=== PATIENT | male | born 1955 | race Caucasian/White ===

== ENCOUNTER 2019-10-03 12:17 | Emergency (ER) | payer MEDICARE ==
[2019-10-03] MEDS ORDERED: Fentanyl 100 MCG/2 ML VIAL ONE (12:39)
--- NOTE | 2019-10-03 14:23 | RAD ---
RIGHT HIP 2 VIEWS: Date: 10/03/2019 HISTORY: Right hip pain following injury from a fall. FINDINGS/IMPRESSION: Status post right total hip replacement. No evidence for acute fracture or dislocation. POS: RRE
--- NOTE | 2019-10-03 14:26 | RAD ---
Radiograph right femur 2 views: 10/03/2019 HISTORY: 64-year-old male with acute traumatic right thigh pain after fall FINDINGS: Total hip replacement hardware. No signs of loosening or dislocation. No acute fracture of femur. IMPRESSION: 1. No acute fracture. 2. Status post total right hip replacement arthroplasty.
--- NOTE | 2019-10-03 14:27 | RAD ---
AP PELVIS 1 VIEW: Date: 10/03/2019 HISTORY: Right hip pain following injury from a fall. FINDINGS: Total right hip replacement changes without dislocation or periprosthetic fracture. Very severe arthr osis changes of the left hip joint with marked joint space loss and hypertrophic osteophytosis, scler osis, and eburnation, and some overall flattening and deformity of the left humeral head and neck reg ion, but this does not appear to represent any acute fracture. IMPRESSION: Severe arthrosis left hip joint. No overt acute fracture. No acute pelvic fracture. Status post right total hip replacement. POS: RRE
[2019-10-03] MEDS ORDERED: Ketorolac Tromethamine 30 MG/ML VIAL ONE (14:54)
[2019-10-03] MEDS ORDERED: Ondansetron PF 4 MG/2 ML Vial ONE (14:54)
[2019-10-03] MEDS ORDERED: Morphine 4 MG/ML VIAL ONE (14:54)
[2019-10-03] MEDS ORDERED: Diazepam 5 MG TAB ONE (14:54)
== END 2019-10-03 18:32 | disposition home or self-care (01) ==
LOC: ERS 12:17
DX: S30.0XXA Contusion of lower back and pelvis, initial encounter (principal); S70.01XA Contusion of right hip, initial encounter; M62.830 Muscle spasm of back; I10 Essential (primary) hypertension; E78.00 Pure hypercholesterolemia, unspecified; M10.9 Gout, unspecified; Z86.73 Personal history of transient ischemic attack (TIA), and cerebral infarction without residual deficits; Z79.899 Other long term (current) drug therapy; W18.11XA Fall from or off toilet without subsequent striking against object, initial encounter
CPT/HCPCS: 72170; 96374; 96375; J1885; J2270; J2405; J3010

== ENCOUNTER 2020-02-29 07:27 | Outpatient (CLI) | payer MEDICARE, OTHER ==
[2020-02-29 12:25] LABS: #Eosinphils 0.3 10x3/uL (0.0-0.5); #Monocytes 0.8 10x3/uL (0.0-1.1); #Neutrophils 5.2 10x3/uL (1.5-8.4); %Basophils 0.5 % (0.0-2.0); %Eosinophils 3.4 % (0.0-6.0); %Lymphocytes 21.4 % (18.0-47.0); %Monocytes 10.2 % (0.0-10.0); Hemoglobin 17.8 g/dL (14.0-18.0); Mean Corpuscular HGB CONC 34.6 G/DL (32.0-36.0); Mean Corpuscular Hemoglobin 31.4 PG (27.0-33.0); Mean Corpuscular Volume 90.7 fl (80.0-100.0); Mean Platelet Volume 11.7 fl (7.4-10.4); Platelet Count 182 10x3/uL (130-400); RBC Distribution Width 12.5 % (11.5-14.5); Red Blood Cell (RBC) Count 5.67 10x6/uL (4.40-5.80); White Blood Cell (WBC) Count 8.1 10x3/uL (4.5-11.0)
[2020-02-29 12:32] LABS: Bilirubin Neg (Negative); Blood, Urine Negative (Negative); Clarity Clear (Clear); Glucose, Urine (Dipstick) Normal (Negative); Ketone, Urine Negative (Negative); Leukocyte Negative (Negative); Nitrite Negative (Negative); Protein, Urine (Dipstick) Negative (Neg-Trace)
[2020-02-29 12:37] LABS: Prothrombin Time 10.9 sec (9.5-12.1)
[2020-02-29 12:48] LABS: Bacteria/HPF None Seen HPF (None Seen); RBC/HPF None Seen HPF (0-3); Squamous Epithelial None Seen HPF (0-3); WBC/HPF None Seen HPF (0-3)
[2020-02-29 12:56] LABS: Anion Gap 22 mmol/L (10-20); BUN (Urea Nitrogen) 11 mg/dL (8.4-25.7); Calc. Creatinine Clearance 0 mL/min (70-130); Calcium 9.8 mg/dL (7.8-10.44); Carbon Dioxide 20 mmol/L (23-31); Chloride 101 mmol/L (98-107); Estimated GFR-MDRD 83; Glucose 83 mg/dL (80-115); Potassium 4.4 mmol/L (3.5-5.1); Sodium 139 mmol/L (136-145)
[2020-03-01 11:57] LABS: SARS-CoV-2 MS2 Positive; SARS-CoV-2 N Gene Negative; SARS-CoV-2 S Gene Negative; SARS-CoV-2 by NAA Not Detected (NotDetected); SARS-CoV-2 orf1ab Negative
== END 2020-02-29 07:28 | disposition home or self-care (01) ==
LOC: LABBT 07:27
PROVIDERS: ATTEND Orthopaedic Surgery
DX: Z01.818 Encounter for other preprocedural examination (principal); Z20.828 Contact with and (suspected) exposure to other viral communicable diseases; M16.12 Unilateral primary osteoarthritis, left hip
CPT/HCPCS: 80048; 81001; 85025; 85610; 87081; 93005; U0003; 87635; 93010

== ENCOUNTER 2020-02-29 11:00 | Inpatient (IN) | payer MEDICARE ==
[2020-03-04 12:42] VITALS: BMI 29.5
[2020-03-05] MEDS ORDERED: Promethazine HCl 25 MG/ML VIAL IM PRN ×3 (06:57→10:18)
[2020-03-05] MEDS ORDERED: Acetaminophen 325 MG TAB PO PRN (06:57)
[2020-03-05] MEDS ORDERED: Ondansetron PF 4 MG/2 ML Vial IVP PRN ×2 (06:57→08:45)
[2020-03-05] MEDS ORDERED: HYDROcodone/Acetaminophen 10/325 mg Tablet PO PRN ×2 (06:57)
[2020-03-05] MEDS ORDERED: Zolpidem Tartrate 5 MG TAB PO PRN ×2 (06:57→08:45)
[2020-03-05] MEDS ORDERED: diphenhydrAMINE 25 MG CAP PO PRN (06:57)
[2020-03-05] MEDS ORDERED: Tranexamic Acid 1,000 MG/10 ML VIAL ONE (07:40)
[2020-03-05] MEDS ORDERED: Sodium Chloride 0.9% 100 ML ONE (07:41)
[2020-03-05] MEDS ORDERED: Vancomycin 1.5 GRAM/300 ML BAG ONE (07:41)
[2020-03-05] MEDS ORDERED: Fentanyl 100 MCG/2 ML VIAL ONE ×3 (08:16→11:29)
[2020-03-05] MEDS ORDERED: Midazolam HCl 2 mg/2 ml Vial ONE (08:16)
[2020-03-05] MEDS ORDERED: fentaNYL Citrate/PF 500 MCG, Bupivacaine 10 ML in Sodium Chloride 0.9% 80 ML EPIDURAL SCH (08:45)
[2020-03-05] MEDS ORDERED: Naloxone HCl 0.4 mg/ml Vial IV PRN (08:45)
[2020-03-05] MEDS ORDERED: Promethazine HCl 25 MG SUPP PR PRN (08:45)
[2020-03-05] MEDS ORDERED: Naloxone HCl 0.4 mg/ml Vial IVP PRN (08:45)
[2020-03-05] MEDS ORDERED: Bupivacaine 0.25% 10 ML VIAL EPIDURAL PRN (08:45)
[2020-03-05] MEDS ORDERED: Hydrocerin (Eucerin) Cream 120 gm Jar TOP PRN (08:45)
[2020-03-05] MEDS ORDERED: diphenhydrAMINE 50 MG/ML VIAL IVP PRN (08:45)
[2020-03-05] MEDS ORDERED: HYDROcodone/Acetaminophen 5/325 mg Tablet PO PRN (08:45)
[2020-03-05] MEDS ORDERED: diphenhydrAMINE 50 MG/ML VIAL IM PRN (08:45)
[2020-03-05] MEDS ORDERED: traMADol HCl 50 MG TAB PO PRN (08:45)
[2020-03-05] MEDS ORDERED: Aspirin 81 mg Enteric Coated Tablet PO SCH (09:00)
[2020-03-05] MEDS ORDERED: Bupivacaine/Epinephrine 0.25% 30 ML VIAL ONE (09:06)
[2020-03-05] MEDS ORDERED: Ropivacaine 0.2% HCl/PF 0 ML ONE (09:17)
[2020-03-05] MEDS ORDERED: PACU-Morphine 4MG/ML VIAL SLOW IVP PRN (10:18)
[2020-03-05] MEDS ORDERED: Promethazine HCl 25 MG/ML VIAL SLOW IVP PRN (10:18)
[2020-03-05] MEDS ORDERED: Meperidine HCl/PF 25 MG/ML VIAL SLOW IVP PRN (10:18)
--- NOTE | 2020-03-05 11:26 | OP ---
DATE OF PROCEDURE: 03/05/2020 TITLE OF PROCEDURE: Left total hip arthroplasty using a [place] Accolade II size 4 stem, -5 ceramic head, and a 56-mm Trident II cup with a 36-mm X3 liner. PURIFICATION OPERATOR HELPER: Gigi Draper PA-C BLOOD LOSS: 200. SPECIMENS: None. DRAINS: None. COMPLICATION: None. The news assistant/co-surgeon was present through the entire procedure and was responsible for providing exposure, tissue retraction and any necessary limb or tissue manipulation required to obtain necessary reduction or hardware placement. The news assistant/co-surgeon also provided bleeding control, tissue closure, and suturing in conjunction with the primary surgeon. PROCEDURE IN DETAIL: After informed consent was obtained in the preoperative holding area, the patient was taken to the operative suite where general anesthesia was induced. The patient was then positioned in the lateral decubitus position. The hip was then prepped and draped in usual sterile fashion. The patient received preoperative antibiotics. Prior to incision, time-out was called and all members of the surgical team agreed upon site, surgeon, and patient. After this, a longitudinal incision was made directly over the trochanter, noted by palpation extending 2 fingerbreadths above and below the trochanter. The deeper subcutaneous layer was undermined with Bovie electrocautery. The iliotibial band was encountered and incised sharply and the plane below this was developed bluntly. A Charnley retractor was placed to hold this opened. The lateral aspect of the trochanter and the abductor muscles were encountered and then reflected anteriorly off the trochanter using Bovie electrocautery. Once this was completed, the anterior capsule was then encountered and identified and copious capsulotomy was carried out, exposing the femoral neck and head. Dislocation maneuver was then performed and an in situ provisional neck cut was then made using the oscillating saw. Attention was then turned to acetabular preparation and sequential reaming was carried out up to the appropriate diameter. A trial was then malleted into place with good firm resistance and no pullout. The permanent acetabular shell was then malleted squarely into place, as was the appropriate liner. Once completed, the wound was copiously irrigated and attention was then turned to femoral preparation. Flexion and external rotation were performed of the exposed thigh and femoral elevators were then placed at the proximal aspect of the wound. Canal finder was used to establish the length of the canal and sequential reaming was carried out, followed by broaching. Once the appropriate stability was established with the trial broaches with flexion, extension and rotational stability, we did trial with neutral and 2 mm offset incremental necks. Once the appropriate size was decided upon, with good stability noted with flexion, extension, internal and external rotation and shuck being negative, we removed the femoral trial broach and malletted into place the permanent prosthesis with good firm fit, which was also stable to rotation. Again, the hip felt very stable to flexion, extension, internal and external rotation. Leg lengths appeared near anatomic clinically and we were quite happy with prosthesis placement. Copious irrigation was then carried out through the entirety of the wound. Primary closure of the abductors was accomplished with interrupted #2 Vicryl [id number] stitches and the IT band was then closed with interrupted #2 Vicryl, oversewn with a #2 running barbed Quill stitch. Subcutaneous fascia was closed with running barbed Quill stitch and a subcuticular Monocryl barbed Quill stitch was used for skin closure and augmented with skin cement. A sterile dressing was applied. The procedure was terminated without any complication. All counts were correct. The patient was awakened in the operative suite and taken to the recovery room in stable condition. Job ID: [id number]
--- NOTE | 2020-03-05 11:58 | RAD ---
XR Hip Lt 2-3 View INDICATION: Postop left hip COMPARISON: None FINDINGS: Bones: No acute osseous abnormality. Bone mineralization appears within normal limits. Hip joint: There is a left total hip prosthesis that projects in expected position. There is scattere d intra-articular and periarticular soft tissue gas. SI joints and symphysis pubis: Radiographically normal. Intrapelvic contents: Visualized bowel gas pattern is within normal limits. Surrounding soft tissues: As expected for postoperative left hip. IMPRESSION: 1. Postoperative left hip.
[2020-03-05] MEDS: Allopurinol 100 MG TAB PO SCH (12:53)
[2020-03-05] MEDS: Baclofen 10 MG TAB PO SCH ×2 (12:53→20:33)
[2020-03-05] MEDS: Aspirin 81 mg Enteric Coated Tablet PO SCH ×2 (12:53→20:33)
[2020-03-05] MEDS: Sodium Chloride 0.9% 1,000 ML IV SCH ×2 (12:53→21:18)
[2020-03-05] MEDS: Hydrochlorothiazide 25 MG TAB PO SCH (12:54)
[2020-03-05] MEDS: Lisinopril 20 MG TAB PO SCH (12:54)
[2020-03-05] MEDS: Ubidecarenone 50 MG CAP PO SCH ×2 (12:54→20:32)
[2020-03-05] MEDS: Metoprolol Tartrate 50 MG TAB PO SCH ×2 (12:54→20:33)
[2020-03-05] MEDS ORDERED: Ondansetron PF 4 MG/2 ML Vial ONE (13:11)
[2020-03-05] MEDS ORDERED: Rocuronium Bromide 10 MG/ML (10ML VIAL) ONE (13:11)
[2020-03-05] MEDS ORDERED: Lidocaine 1.5% w/Epi 1:200K 30 ML VIAL (Epid Use) ONE (13:11)
[2020-03-05] MEDS ORDERED: Lidocaine 1% PF 5 ML VIAL ONE (13:11)
[2020-03-05] MEDS ORDERED: PHENYLEPHRINE-NS 100 MCG/ML 10 ML SYRINGE ONE (13:11)
[2020-03-05] MEDS ORDERED: Dexamethasone 20 MG/5 ML VIAL ONE (13:11)
[2020-03-05] MEDS ORDERED: Glycopyrrolate 0.2 MG/ML 5 ML SYRINGE ONE (13:11)
[2020-03-05] MEDS ORDERED: EPHEDRINE 25 MG/5 ML SYRINGE ONE (13:11)
[2020-03-05] MEDS ORDERED: PROPOFOL 200 MG/20 ML VIAL ONE (13:11)
[2020-03-05] MEDS: Ketorolac Tromethamine 30 MG/ML VIAL IVP SCH ×2 (13:22→18:00)
[2020-03-05] MEDS ORDERED: Ketorolac Tromethamine 30 MG/ML VIAL IM SCH (14:00)
[2020-03-05] MEDS: CEFAZOLIN 2 GM in Premix Bag 1 BAG IVPB SCH (19:00)
[2020-03-05] MEDS: Atorvastatin Calcium 40 MG TAB PO SCH (20:33)
[2020-03-05] MEDS: FLUoxetine HCl 20 MG CAP PO SCH (20:33)
[2020-03-06] MEDS: diphenhydrAMINE 25 MG CAP PO PRN ×3 (00:11→13:02)
[2020-03-06] MEDS: Ketorolac Tromethamine 30 MG/ML VIAL IVP SCH ×5 (00:11→23:48)
[2020-03-06] MEDS: CEFAZOLIN 2 GM in Premix Bag 1 BAG IVPB SCH (00:11)
[2020-03-06] MEDS ORDERED: Insulin Regular 300 UNITS/3 ML VIAL ONE (03:28)
[2020-03-06] MEDS: Sodium Chloride 0.9% 1,000 ML IV SCH ×3 (05:27→23:48)
[2020-03-06 05:51] LABS: Mean Corpuscular HGB CONC 33.8 g/dL (32.0-36.0); Mean Corpuscular Hemoglobin 32.8 pg (27.0-31.0); Platelet Count 145 thou/uL (130-400); RBC Distribution Width 11.7 % (11.5-14.5); Red Blood Cell (RBC) Count 4.58 mill/uL (4.70-6.10); White Blood Cell (WBC) Count 11.3 thou/uL (4.8-10.8)
[2020-03-06] MEDS: Aspirin 81 mg Enteric Coated Tablet PO SCH ×2 (08:42→21:13)
[2020-03-06] MEDS: Ferrous Gluconate 324 MG TAB PO SCH ×2 (08:43→18:05)
[2020-03-06] MEDS: Senokot S 8.6-50 MG TAB PO SCH ×2 (08:43→21:13)
[2020-03-06] MEDS: Multivitamin W/ Minerals 1 TAB PO SCH (08:44)
[2020-03-06] MEDS: Ubidecarenone 50 MG CAP PO SCH ×2 (08:44→21:12)
[2020-03-06] MEDS: Lisinopril 20 MG TAB PO SCH (08:44)
[2020-03-06] MEDS: Hydrochlorothiazide 25 MG TAB PO SCH (08:45)
[2020-03-06] MEDS: Metoprolol Tartrate 50 MG TAB PO SCH ×2 (08:46→21:13)
[2020-03-06] MEDS: Baclofen 10 MG TAB PO SCH ×2 (08:46→21:11)
[2020-03-06] MEDS: Allopurinol 100 MG TAB PO SCH (08:46)
[2020-03-06] MEDS ORDERED: FLU VACC QS2020-21(6MOS UP)/PF 60 MCG/0.5 ML SYRINGE IM ONE (09:00)
[2020-03-06] MEDS: Bupivacaine 10 ML in Sodium Chloride 0.9% 90 ML EPIDURAL SCH (13:10)
[2020-03-06] MEDS: HYDROcodone/Acetaminophen 5/325 mg Tablet PO PRN (18:05)
[2020-03-06] MEDS: Atorvastatin Calcium 40 MG TAB PO SCH (21:12)
[2020-03-06] MEDS: FLUoxetine HCl 20 MG CAP PO SCH (21:12)
[2020-03-06] MEDS: traMADol HCl 50 MG TAB PO PRN (21:12)
--- NOTE | 2020-03-06 21:16 | RAD ---
TWO VIEWS OF THE LEFT HIP: 03/06/20 COMPARISON: 03/05/20 HISTORY: Fall, left total hip arthroplasty. FINDINGS: Lateral soft tissue swelling is present, similar when compared to the prior exam. There is a stable l eft hip arthroplasty. No acute fracture or dislocation. IMPRESSION: No significant interval change. POS: DEEPTI
[2020-03-07 05:14] LABS: Hemoglobin 14.4 g/dL (14.0-18.0); Mean Corpuscular HGB CONC 33.2 g/dL (32.0-36.0); Mean Corpuscular Volume 96.5 fL (78.0-98.0); Mean Platelet Volume 9.5 fL (7.4-10.4); Platelet Count 130 thou/uL (130-400); RBC Distribution Width 11.9 % (11.5-14.5); Red Blood Cell (RBC) Count 4.49 mill/uL (4.70-6.10)
[2020-03-07] MEDS: Ketorolac Tromethamine 30 MG/ML VIAL IVP SCH (05:16)
[2020-03-07] MEDS: Bupivacaine 10 ML in Sodium Chloride 0.9% 90 ML EPIDURAL SCH ×2 (05:17→20:19)
[2020-03-07] MEDS: HYDROcodone/Acetaminophen 5/325 mg Tablet PO PRN (07:52)
[2020-03-07] MEDS: Ferrous Gluconate 324 MG TAB PO SCH ×2 (07:54→18:50)
[2020-03-07] MEDS: Metoprolol Tartrate 50 MG TAB PO SCH ×2 (07:54→20:24)
[2020-03-07] MEDS: Aspirin 81 mg Enteric Coated Tablet PO SCH ×2 (07:55→20:23)
[2020-03-07] MEDS: Ubidecarenone 50 MG CAP PO SCH ×2 (07:55→20:23)
[2020-03-07] MEDS: Allopurinol 100 MG TAB PO SCH (07:55)
[2020-03-07] MEDS: Hydrochlorothiazide 25 MG TAB PO SCH (07:55)
[2020-03-07] MEDS: Baclofen 10 MG TAB PO SCH ×2 (07:55→20:23)
[2020-03-07] MEDS: Multivitamin W/ Minerals 1 TAB PO SCH (07:55)
[2020-03-07] MEDS: Lisinopril 20 MG TAB PO SCH (07:56)
[2020-03-07] MEDS: Senokot S 8.6-50 MG TAB PO SCH ×2 (07:56→20:23)
[2020-03-07] MEDS: traMADol HCl 50 MG TAB PO PRN (11:24)
[2020-03-07] MEDS: Sodium Chloride 0.9% 1,000 ML IV SCH ×2 (11:25→20:29)
[2020-03-07] MEDS ORDERED: HYDROcodone/Acetaminophen 10/325 mg Tablet PO PRN (12:31)
[2020-03-07] MEDS ORDERED: Fentanyl 100 MCG/2 ML VIAL SLOW IVP PRN (12:33)
[2020-03-07] MEDS: HYDROcodone/Acetaminophen 10/325 mg Tablet PO PRN ×2 (16:19→20:26)
[2020-03-07] MEDS: Atorvastatin Calcium 40 MG TAB PO SCH (20:23)
[2020-03-07] MEDS: FLUoxetine HCl 20 MG CAP PO SCH (20:23)
[2020-03-08] MEDS: Sodium Chloride 0.9% 1,000 ML IV SCH ×2 (04:12→13:07)
[2020-03-08 05:58] LABS: Hemoglobin 15.3 g/dL (14.0-18.0); Mean Corpuscular HGB CONC 33.8 g/dL (32.0-36.0); Mean Corpuscular Hemoglobin 32.8 pg (27.0-31.0); Mean Platelet Volume 9.4 fL (7.4-10.4); Platelet Count 150 thou/uL (130-400); RBC Distribution Width 11.8 % (11.5-14.5); Red Blood Cell (RBC) Count 4.65 mill/uL (4.70-6.10); White Blood Cell (WBC) Count 9.7 thou/uL (4.8-10.8)
[2020-03-08] MEDS: HYDROcodone/Acetaminophen 10/325 mg Tablet PO PRN (08:49)
[2020-03-08] MEDS ORDERED: tiZANidine HCl 4 MG TAB PO SCH (09:00)
[2020-03-08] MEDS: Hydrochlorothiazide 25 MG TAB PO SCH (09:18)
[2020-03-08] MEDS: Senokot S 8.6-50 MG TAB PO SCH ×2 (09:18→21:26)
[2020-03-08] MEDS: Ubidecarenone 50 MG CAP PO SCH ×2 (09:18→21:26)
[2020-03-08] MEDS: Allopurinol 100 MG TAB PO SCH (09:19)
[2020-03-08] MEDS: Aspirin 81 mg Enteric Coated Tablet PO SCH ×2 (09:19→21:26)
[2020-03-08] MEDS: Ferrous Gluconate 324 MG TAB PO SCH ×2 (09:19→18:18)
[2020-03-08] MEDS: Metoprolol Tartrate 50 MG TAB PO SCH ×2 (09:19→21:45)
[2020-03-08] MEDS: Bupivacaine 10 ML in Sodium Chloride 0.9% 90 ML EPIDURAL SCH (09:19)
[2020-03-08] MEDS: Lisinopril 20 MG TAB PO SCH (09:19)
[2020-03-08] MEDS: Multivitamin W/ Minerals 1 TAB PO SCH (09:19)
[2020-03-08] MEDS: tiZANidine HCl 4 MG TAB PO SCH ×3 (17:20→23:27)
[2020-03-08] MEDS: Atorvastatin Calcium 40 MG TAB PO SCH (21:25)
[2020-03-08] MEDS: FLUoxetine HCl 20 MG CAP PO SCH (21:26)
[2020-03-09] MEDS: Sodium Chloride 0.9% 1,000 ML IV SCH ×2 (01:28→09:43)
[2020-03-09] MEDS: tiZANidine HCl 4 MG TAB PO SCH ×2 (03:42→07:59)
[2020-03-09 05:05] LABS: Hemoglobin 14.6 g/dL (14.0-18.0); Mean Corpuscular HGB CONC 34.5 g/dL (32.0-36.0); Mean Corpuscular Hemoglobin 33.5 pg (27.0-31.0); Mean Corpuscular Volume 97.1 fL (78.0-98.0); Platelet Count 168 thou/uL (130-400); RBC Distribution Width 11.6 % (11.5-14.5); Red Blood Cell (RBC) Count 4.34 mill/uL (4.70-6.10); White Blood Cell (WBC) Count 7.4 thou/uL (4.8-10.8)
[2020-03-09 07:37] VITALS: TEMP 98.2
[2020-03-09] MEDS: Allopurinol 100 MG TAB PO SCH (09:34)
[2020-03-09] MEDS: Ubidecarenone 50 MG CAP PO SCH (09:34)
[2020-03-09] MEDS: Aspirin 81 mg Enteric Coated Tablet PO SCH (09:34)
[2020-03-09] MEDS: Ferrous Gluconate 324 MG TAB PO SCH (09:34)
[2020-03-09] MEDS: Senokot S 8.6-50 MG TAB PO SCH (09:35)
[2020-03-09] MEDS: Multivitamin W/ Minerals 1 TAB PO SCH (09:35)
[2020-03-09] MEDS: Metoprolol Tartrate 50 MG TAB PO SCH (09:42)
[2020-03-09] MEDS: Lisinopril 20 MG TAB PO SCH (09:42)
[2020-03-09 09:43] VITALS: BP 126/76
[2020-03-09] MEDS: Hydrochlorothiazide 25 MG TAB PO SCH (09:43)
[2020-03-09] MEDS: HYDROcodone/Acetaminophen 10/325 mg Tablet PO PRN (12:29)
== END 2020-03-09 12:20 | DRG 470 ==
LOC: SJJU 03-05 06:44
PROVIDERS: ADMIT Orthopaedic Surgery; ATTEND Orthopaedic Surgery
PROC: 0SRB049 Replacement of Left Hip Joint with Ceramic on Polyethylene Synthetic Substitute, Cemented, Open Approach (ICD-10-PCS; principal; 2020-03-05)
DX: M16.12 Unilateral primary osteoarthritis, left hip (principal); I69.351 Hemiplegia and hemiparesis following cerebral infarction affecting right dominant side; F32.9 Major depressive disorder, single episode, unspecified; K21.9 Gastro-esophageal reflux disease without esophagitis; I10 Essential (primary) hypertension; M10.9 Gout, unspecified; Z20.828 Contact with and (suspected) exposure to other viral communicable diseases
CPT/HCPCS: 36415; 85027; J0690; J1100; J1815; J1885; J2001; J2250; J2405; J2704; J2795; J3010; J3370; J3490; Q0163